=== PATIENT | male | born 1985 | race Two or more races ===

== ENCOUNTER 2022-05-15 08:05 | Outpatient (CLI) | payer OTHER | END 2022-05-15 08:20 | disposition home or self-care (01) | LOC: RAD 08:05 | DX: N20.9 Urinary calculus, unspecified (principal); N20.0 Calculus of kidney ==

== ENCOUNTER 2022-05-15 08:51 | Outpatient (CLI) | payer OTHER | END 2022-05-15 23:00 | disposition home or self-care (01) | LOC: LAB 08:51 | DX: I10 Essential (primary) hypertension (principal); N39.0 Urinary tract infection, site not specified ==